=== PATIENT | female | born 1980 | race Two or more races ===

== ENCOUNTER 2017-10-23 16:50 | Emergency (ER) | payer OTHER, BC ==
[2015-06-14 17:03] VITALS: Ht 154.9 cm; Wt 95.3 kg
[~2017-10-23] VITALS: Ht 154.9 cm; Wt 95.3 kg
[~2017-10-23 16:50] MED LIST: ALPR-459 PO; AMOX500T10 PO; ASPI-692 PO; AZIT-18 PO; BENZ200C15 PO; CHLOR25 PO; CIPR-214 PO; CIPR-344 PO; CLON-388 PO; DIA5 PO; ESCI10TA8 PO; FAMO20TA28 PO; FERR325T5 PO; FLU150 PO; HYDR-389 PO; HYDR-4309 PO; HYDR25SU35 RC; HYDR25SU51 RC; IBU800 PO; IBUP-1671 PO; IBUP600T22 PO; KET10 PO; LOR5/325 PO; METO25TA93 PO; NO CURRENT MEDS; OMEP-114 PO; ONDA4TAB PO; ONDA4TAB97 PO; OXYC-865 PO; PER PO; PHEN-578 PO; POTA20TA94 PO; PRED20TA6 PO; PROM-110 PO; PROM5SYR PO; TRAM-420 PO; VENL225T5 PO
--- NOTE | 2017-10-23 17:01 | ER Report ---
History and Physical Time Seen By MD: 17:01 Hx. of Stated Complaint: PT WAS AUDRA FR[employer] SUBDUE A [employer] AT [employer] AND TWISTED R WRIST HPI/ROS CHIEF COMPLAINT: Wrist pain HISTORY OF PRESENT ILLNESS: This is a 37-year-old female who presents to the emergency department for right wrist pain. 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 Patient states this happened about 5 hours ago, went home took some ibuprofen with little to no relief. Patient denies numbness or tingling. No nausea or vomiting aches or chills. REVIEW OF SYSTEMS: Respiratory: No cough, no dyspnea. Cardiovascular: No chest pain, no palpitations. Gastrointestinal: No vomiting, no abdominal pain. Musculoskeletal: As above. Allergies: Coded Allergies: No Known Drug Allergies (Unverified , 10/23/17) Home Meds Discontinued Scripts Promethazine Hcl (PROMETHAZINE HCL) 25 Mg Tablet, 25 MG PO Q4H Y for NAUSEA/ VOMITING, #12 TAB Prov:LELE MONTANO DO 12/22/16 Ondansetron Hcl (ZOFRAN) 4 Mg Tablet, 4 MG PO Q6H Y for NAUSEA/VOMITING, #10 Prov:LELE MONTANO DO 12/22/16 Famotidine (PEPCID) 20 Mg Tablet, 20 MG PO 1-2XD, #30 TAB Prov:CODY LOPEZ 10/01/16 Ondansetron (ZOFRAN ODT) 4 Mg Tab.rapdis, 4 MG PO Q6H Y for NAUSEA/VOMITING, # 20 TAB.LUIS ARMANDO Prov:CODY LOPEZ 10/01/16 Ferrous Sulfate (FEOSOL) 325 Mg Tablet, 325 MG PO BID, #60 Prov:CODY LOPEZ APRN-Lety 10/01/16 Past Medical/Surgical History Patient has a past medical and surgical history of migraines, hypertension, hypercholesterolemia, atelectasis, kidney stones, gestational diabetes, depression, cholecystectomy, appendectomy, hysterectomy, tubal ligation. Reviewed Nurses Notes: Yes Hx Smoking: No Smoking Status: Never Smoker Exposure to Second Hand Smoke?: No Hx Substance Use Disorder: No Hx Alcohol Use: Yes Constitutional Vital Sign - Last 24 Hours 10/23/17 10/23/17 16:56 17:59 Temp 98.9 Pulse 87 Resp 20 B/P (MAP) 143/70 119/86 (97) Pulse Ox 94 O2 Delivery Room Air Physical Exam General Appearance: The patient is alert, has no immediate need for airway protection and no current signs of toxicity. Eyes: Pupils equal and round no injection. Respiratory: Chest is non tender, lungs are clear to auscultation. Cardiac: regular rate and rhythm. Gastrointestinal: Abdomen is soft and non tender, no masses, bowel sounds normal. Musculoskeletal: Neck: Neck is supple and non tender. Extremities Examination of the Right hand reveals no acute deformity. The patient is able to give a thumbs up sign, is able to make an okay sign, and is able to AB duct the fingers. Pain to the snuff box. Sensation is intact over the dorsal 1st web space, the volar aspect of the 2nd finger, and the volar aspect of the 5th finger. Capillary refill is brisk. Skin: No rashes or lesions. DIFFERENTIAL DIAGNOSIS: After history and physical exam differential diagnosis was considered for but not limited to contusion, wrist sprain, fracture. Medical Decision Making EKG/Imaging Imaging Location: [facility] [place] Patient: Debbie Stover : 1980 Visit/Account:[id number] Date of Sev: 10/23/2017 EXAMINATION: Right wrist radiographs 3 views HISTORY: Pain COMPARISON: None. FINDINGS: 3 views obtained. No fracture. Ulna minus variance noted. No malalignment. Normal soft tissues and joint spaces. IMPRESSION: No acute finding. Report Dictated By: Morris Cowart MD at 10/23/2017 5:36 PM Report E-Signed By: Morris Cowart MD at 10/23/2017 5:38 PM WSN:[id number] Location: [facility] [place] Patient: Debbie Stover : 1980 Visit/Account:[id number] Date of Sevice: 10/23/2017 EXAMINATION: Right hand radiographs 3 views HISTORY: Pain COMPARISON: None. FINDINGS: 3 views obtained. No fracture. Normal alignment and joint spaces. Normal soft tissues. Ulna minus variance noted. IMPRESSION: No acute finding. Report Dictated By: Morris Cowart MD at 10/23/2017 5:34 PM Report E-Signed By: Morris Cowart MD at 10/23/2017 5:36 PM WSN:[id number] ED Course/Re-evaluation ED Course Patient was admitted to a room. A history of physical were obtained. Differential diagnoses were considered. A right hand and right wrist x-ray were obtained. Both x-rays were negative for any acute osseous abnormalities. I did review the results with the patient she is relieved with results. I did place the patient in a splint for comfort. Patient was given 1000mg Tylenol in the emergency department. I did instruct the patient to apply ice to the injury 20 minutes on about 5-6 times a day she can wear the brace for comfort but needs to perform some range of motion exercises. If she hasn't seen any improvement in the next 7-14 days she should follow-up with [facility] for further evaluation. Patient was also structured follow-up with her primary care provider for any other needs she may have. Patient was also instructed to return to emergency room for any other concerns or worsening symptoms. Decision to Disposition Date: Oct 23, 2017 Decision to Disposition Time: 17:53 Depart Departure Latest Vital Signs Vital Signs Date Time Temp Pulse Resp B/P (MAP) Pulse Ox O2 Delivery O2 Flow Rate FiO2 10/23/17 17:59 119/86 (97) 10/23/17 16:56 98.9 87 20 94 Room Air Impression: Primary Impression: Strain of right wrist Condition: Improved Disposition: HOME OR SELF-CARE Referrals: LAYNE HERNÁNDEZ DO (PCP) New Scripts No Active Prescriptions or Reported Meds Patient Instructions: Wrist Injury (ED) Additional Instructions: Drink plenty of water. Get plenty of rest. Alternate ibuprofen and Tylenol as needed for pain. Use the splint for comfort, be sure to perform range of motion exercises. If no improvement in 7-14 days follow up with [facility]. May return to the ED for worsening symptoms. Problem Qualifiers Primary Impression: Strain of right wrist Encounter type: initial encounter Qualified Codes: S66.911A - Strain of unspecified muscle, fascia and tendon at wrist and hand level, right hand, initial encounter BRE WYMANP-BC Oct 23, 2017 17:01
[2017-10-23] MEDS ORDERED: ACETAMINOPHEN 500 MG TAB PO ONE (17:10)
--- NOTE | 2017-10-23 17:40 | RADIOLOGY IMAGING REPORT ---
FACILITY: [facility] PATIENT NAME: Debbie Stover : 1980 MR: [id number] V: [id number] EXAM DATE: ORDERING PHYSICIAN: BRE WYMAN TECHNOLOGIST: Location: [facility] Patient: Debbie Stover : 1980 Visit/Account:[id number] Date of Sevice: 10/23/2017 EXAMINATION: Right hand radiographs 3 views HISTORY: Pain COMPARISON: None. FINDINGS: 3 views obtained. No fracture. Normal alignment and joint spaces. Normal soft tissues. Ulna minus variance noted. IMPRESSION: No acute finding. Report Dictated By: Morris Cowart MD at 10/23/2017 5:34 PM Report E-Signed By: Morris Cowart MD at 10/23/2017 5:36 PM WSN:[id number]
--- NOTE | 2017-10-23 17:42 | RADIOLOGY IMAGING REPORT ---
FACILITY: [facility] [place] PATIENT NAME: Debbie Stover : 1980 MR: [id number] V: [id number] EXAM DATE: ORDERING PHYSICIAN: BRE WYMAN TECHNOLOGIST: Location: [facility] Patient: Debbie Stover : 1980 Visit/Account:[id number] Date of Sevice: 10/23/2017 EXAMINATION: Right wrist radiographs 3 views HISTORY: Pain COMPARISON: None. FINDINGS: 3 views obtained. No fracture. Ulna minus variance noted. No malalignment. Normal soft tissues and joint spaces. IMPRESSION: No acute finding. Report Dictated By: Morris Cowart MD at 10/23/2017 5:36 PM Report E-Signed By: Morris Cowart MD at 10/23/2017 5:38 PM WSN:[id number]
[2017-10-23 17:59] VITALS: BP 119/86
== END 2017-10-23 18:04 | disposition home or self-care (01) ==
LOC: ER 17:12
DX: S66.911A Strain of unspecified muscle, fascia and tendon at wrist and hand level, right hand, initial encounter (principal)
CPT/HCPCS: 73110; 73130; 99282; L3908

== ENCOUNTER 2018-12-10 12:39 | Emergency (ER) | payer BC, OTHER ==
[2015-06-14 17:03] VITALS: Wt 103.4 kg
[~2018-12-10 12:39] MED LIST changes: -HYDR-4309 PO; +HYDR-653 PO
--- NOTE | 2018-12-10 13:02 | ER Report ---
History and Physical Time Seen By MD: 13:02 HPI/ROS CHIEF COMPLAINT: Cough, sore throat, rhinorrhea, diffuse myalgias HISTORY OF PRESENT ILLNESS: Patient is a 38-year-old female here with complaints of the above symptoms for the past 2 days. Patient reports that she has been having intermittent fevers, chills, rhinorrhea, sore throat. 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 Patient is afebrile, hemodynamically stable at time of evaluation, nontoxic in appearance. REVIEW OF SYSTEMS: Constitutional: + fever, + chills. Eyes: No discharge. ENT: + sore throat. Cardiovascular: No chest pain, no palpitations. Respiratory: + cough, no shortness of breath. Gastrointestinal: No abdominal pain, no vomiting, + nausea Genitourinary: No hematuria. Musculoskeletal: No back pain. Skin: No rashes. Neurological: + headache. Allergies: Coded Allergies: No Known Drug Allergies (Unverified , 12/10/18) Home Meds Reported Medications Potassium Chloride (POTASSIUM CHLORIDE) 10 Meq Tablet.er, 10 MEQ PO QDAY 12/10/18 Furosemide (LASIX) 20 Mg Tablet, 1 TAB PO QDAY, TAB 12/10/18 Hx Smoking: No Smoking Status: Never Smoker Exposure to Second Hand Smoke?: No Hx Substance Use Disorder: No Hx Alcohol Use: Yes Constitutional Vital Sign - Last 24 Hours 12/10/18 12/10/18 14:27 14:28 Temp 97.7 97.7 Pulse 87 83 Resp 14 B/P (MAP) 124/84 144/91 (108) Pulse Ox 93 93 O2 Delivery Room Air Room Air Physical Exam General Appearance: The patient is alert, has no immediate need for airway protection and no signs of toxicity. Non toxic-appearing Eyes: Pupils equal and round no pallor or injection. ENT, Mouth: Mucous membranes are moist. + Mild erythema of posterior oropharynx Respiratory: There are no retractions, lungs are clear to auscultation. Cardiovascular: Regular rate and rhythm. Gastrointestinal: Abdomen is soft and non tender, no masses, bowel sounds normal. Neurological: No focal neurological findings Skin: Warm and dry, no rashes. Musculoskeletal: Neck is supple non tender. Extremities are nontender, nonswollen and have full range of motion. DIFFERENTIAL DIAGNOSIS: After history and physical exam differential diagnosis was considered for adult fever including but not limited to viral syndromes including influenza, urinary tract infection, pneumonia and sepsis. Medical Decision Making Data Points Laboratory Hematology Test 12/10/18 13:46 Influenza Virus Type A (PCR) Positive (NEGATIVE) Influenza Virus Type B (PCR) Negative (NEGATIVE) Respiratory Syncytial Virus (PCR) Negative (NEGATIVE) Group A Streptococcus (PCR) Negative (NEGATIVE) Chemistry Test 12/10/18 13:46 Influenza Virus Type A (PCR) Positive (NEGATIVE) Influenza Virus Type B (PCR) Negative (NEGATIVE) Respiratory Syncytial Virus (PCR) Negative (NEGATIVE) Group A Streptococcus (PCR) Negative (NEGATIVE) EKG/Imaging Imaging PATIENT NAME: Debbei Stover : 1980 MR: [id number] V: [id number] EXAM DATE: [id number] ORDERING PHYSICIAN: EMMANUEL TIJERINA TECHNOLOGIST: Location: [facility] Patient: Debbie Stover : 1980 Visit/Account:[id number] Date of Sevice: 12/10/2018 Technique: CHEST PA LAT HISTORY: cough COMPARISON: Chest radiograph July 04, 2015 Findings: The lungs are clear. No pleural effusion or pneumothorax. The cardi omediastinal silhouette is normal. Impression: 1. No acute cardiopulmonary process. ED Course/Re-evaluation ED Course Patient is a 38-year-old female here with complaints of cough, fevers, chills, generalized malaise, myalgias. Strep was found to be negative, chest x-ray showed no acute consolidations. Influenza A was found to be positive. Symptoms have been present for greater than 48 hours so Tamiflu was not a viable option at this point. Conservative management recommended. Patient was stable at time of discharge. Return precautions provided. Decision to Disposition Date: Dec 10, 2018 Decision to Disposition Time: 14:47 Depart Departure Latest Vital Signs Vital Signs Date Time Temp Pulse Resp B/P (MAP) Pulse Ox O2 Delivery O2 Flow Rate FiO2 12/10/18 14:28 97.7 83 144/91 (108) 93 Room Air 12/10/18 14:27 14 Impression: Primary Impression: Influenza A Condition: Improved Disposition: HOME OR SELF-CARE Referrals: LAYNE HERNÁNDEZ DO (PCP) Patient Instructions: Influenza (DC) Additional Instructions: Please drink plenty of water. Please take Tylenol, ibuprofen as needed for fevers. Please follow-up with your family doctor in the next 24-48 hours for reevaluation and care. Please return if you have worsening symptoms, inability to keep down food or fluids, difficulty breathing, difficulty swallowing. EMMANUEL TIJERINA DO Dec 10, 2018 13:02
--- NOTE | 2018-12-10 14:21 | RADIOLOGY IMAGING REPORT ---
FACILITY: [facility] - [place], [place] PATIENT NAME: Debbie Stover : 1980 MR: [id number] V: [id number] EXAM DATE: ORDERING PHYSICIAN: EMMANUEL TIJERINA TECHNOLOGIST: Location: [facility] [place] Patient: Debbie Stover : 1980 Visit/Account:[id number] Date of Sevice: 12/10/2018 Technique: CHEST PA LAT HISTORY: cough COMPARISON: Chest radiograph July 04, 2015 Findings: The lungs are clear. No pleural effusion or pneumothorax. The cardiomediastinal silhouett e is normal. Impression: 1. No acute cardiopulmonary process. Report Dictated By: Benjamin Fountain DO at 12/10/2018 2:16 PM Report E-Signed By: Benjamin Fountain DO at 12/10/2018 2:17 PM WSN:[id number]
[2018-12-10 14:28] VITALS: BP 144/91
[2018-12-10] MEDS ORDERED: POTA-28 PO (14:30)
[2018-12-10] MEDS ORDERED: FURO20TA19 PO (14:30)
== END 2018-12-10 15:10 | disposition home or self-care (01) ==
LOC: ER 13:06
DX: J09.X2 Influenza due to identified novel influenza A virus with other respiratory manifestations (principal)
CPT/HCPCS: 71046; 87502; 87653; 87798; 99283